=== PATIENT | female | born 1935 | race Caucasian/White ===

== ENCOUNTER 2020-06-21 16:32 | Emergency (ER) | payer MEDICARE, OTHER ==
[~2020-06-21 16:32] MED LIST: ASPIRIN CHEWABL81 MG PO; CIPRO500 MG PO; CYCLOBENZAPRINE PO; LACTINEX1 EACH PO; LISINOPRIL PO; LOPRESSOR25 MG PO; METRONIDAZOLE500 MG PO; VITAMIN E400 UNI1 PO
[2020-06-21 17:22] LABS: EOSINOPHIL 1.4 % (0-7); HCT 39.4 % (37.0-47.0); HGB 12.9 g/dl (12.5-16.0); MCH 29.1 pg (25.0-31.0); MCHC 32.7 g/dL (32.0-36.0); MCV 88.7 fL (78.0-100.0); MONOCYTE 10.8 % (0-12); NEUTROPHIL 54.4 % (41-80); NRBC 0; PLT 248 K/uL (150-400); RBC 4.44 M/uL (4.20-5.40); WBC 4.9 K/uL (4.0-10.5)
[2020-06-21 17:26] LABS: INR 1.05 (0.9-1.2)
[2020-06-21 17:34] LABS: ALBUMIN 3.8 g/dL (3.4-5.0); BILIRUBIN - TOTAL 0.4 mg/dL (0.2-1.0); BUN/CREAT RATIO (CALC) 16.7 RATIO; CREATININE 0.66 mg/dL (0.51-0.95); GLOBULIN (CALCULATION) 3.9 g/dL; TOTAL PROTEIN 7.7 g/dL (6.4-8.2)
[2020-06-21 17:43] LABS: LACTIC ACID 1.1 mmol/L (0.4-1.9)
[2020-06-21 18:19] LABS: BILIRUBIN NEGATIVE (NEGATIVE); BLOOD 1+ Ery/uL (NEGATIVE); CLARITY CLEAR (CLEAR); COLOR YELLOW (YELLOW); GLUCOSE (U) NORMAL (NORMAL); LEUKOCYTES TRACE Leu/uL (NEGATIVE); NITRITE NEGATIVE (NEGATIVE); PROTEIN NEGATIVE (NEGATIVE); SPECIFIC GRAVITY 1.015 (1.001-1.030); UROBILINOGEN 0.2 mg/dL (0.2-1.0)
[2020-06-21 18:29] LABS: BACTERIA TRACE; URINARY RBC RARE; URINARY WBC RARE
== END 2020-06-21 19:34 | disposition home or self-care (01) ==
LOC: FER 16:32
PROVIDERS: Emergency Medicine
DX: S06.0X9A Concussion with loss of consciousness of unspecified duration, initial encounter (principal); R09.89 Other specified symptoms and signs involving the circulatory and respiratory systems; W01.0XXA Fall on same level from slipping, tripping and stumbling without subsequent striking against object, initial encounter; Z91.81 History of falling
CPT/HCPCS: 36415; 70450; 71045; 72125; 80053; 81001; 83605; 84145; 85025; 85610; 85730; 87088